=== PATIENT | female | born 1935 | race Two or more races ===

== ENCOUNTER 2017-11-23 08:30 | Inpatient (IN) | payer OTHER ==
[~2017-11-23 08:30] MED LIST: BONIVA150 MG PO; CRESTOR10 MG; HYDRALAZINE HCL25 MG PO; LIPITOR20 MG PO; PLAVIX75 MG PO; PREVACID30 MG PO; RECTICARE30 GM TP; TAMOXIFEN CITRA20 MG PO; TARKA 4/2401 BOTTLE PO; TOPROL XL50 M1 PO; ZESTRIL20 MG PO; ZYRTEC10 M3 PO
[2017-11-30] MEDS ORDERED: GABAPENTIN800 MG PO (09:06)
[2017-11-30] MEDS ORDERED: DOCUSATE SODIU100 MG PO (09:06)
[2017-11-30] MEDS ORDERED: CLONAZEPAM1 MG PO (09:07)
[2017-11-30] MEDS ORDERED: AMOX-CLAV 875-1 EACH PO ×2 (09:07→09:09)
[2017-11-30] MEDS ORDERED: PERCOCET 5-3251 EACH PO (09:07)
== END 2017-11-30 17:29 | disposition home or self-care (01) | DRG 460 ==
LOC: PED 11-29 05:12 → O/R 11-29 05:12 → SURH 11-29 08:30 → PED 11-29 19:17
PROVIDERS: Orthopaedic Surgery Orthopaedic Surgery of the Spine
PROC: 0SG10AJ Fusion of 2 or more Lumbar Vertebral Joints with Interbody Fusion Device, Posterior Approach, Anterior Column, Open Approach (ICD-10-PCS; 2017-11-29)
PROC: 0TS Urinary System, Reposition (ICD-10-PCS; 2017-11-29)
PROC: 07DS3ZZ Extraction of Vertebral Bone Marrow, Percutaneous Approach (ICD-10-PCS; 2017-11-29)
PROC: 0SG10A0 Fusion of 2 or more Lumbar Vertebral Joints with Interbody Fusion Device, Anterior Approach, Anterior Column, Open Approach (ICD-10-PCS; principal; 2017-11-29 10:00)
DX: M43.16 Spondylolisthesis, lumbar region (principal); M41.86 Other forms of scoliosis, lumbar region; M48.061 Spinal stenosis, lumbar region without neurogenic claudication; I10 Essential (primary) hypertension; B34.9 Viral infection, unspecified; K52.89 Other specified noninfective gastroenteritis and colitis; E78.4 Other hyperlipidemia; Z85.3 Personal history of malignant neoplasm of breast; Z86.73 Personal history of transient ischemic attack (TIA), and cerebral infarction without residual deficits; K58.8 Other irritable bowel syndrome; K60.2 Anal fissure, unspecified; K62.4 Stenosis of anus and rectum; M47.896 Other spondylosis, lumbar region

== ENCOUNTER 2017-12-15 13:11 | Emergency (ER) | payer OTHER ==
[~2017-12-15] VITALS: Ht 162.6 cm; Wt 74.8 kg
[~2017-12-15 13:11] MED LIST changes: +AMOX-CLAV 875-1 EACH PO; +CLONAZEPAM1 MG PO; +DOCUSATE SODIU100 MG PO; +GABAPENTIN800 MG PO; +PERCOCET 5-3251 EACH PO
[2017-12-15] MEDS ORDERED: VERAPAMIL ER240 MG (13:43)
[2017-12-15] MEDS ORDERED: ULTRACET PO (21:47)
[2017-12-15] MEDS ORDERED: INTESTINEX680 M1 PO (21:47)
[2017-12-15] MEDS ORDERED: LEVAQUIN750 MG PO (21:47)
[2017-12-15] MEDS ORDERED: ZANTAC300 MG PO (21:47)
[2017-12-15] MEDS ORDERED: FLONASE ALLERG9.9 ML NASAL (21:47)
== END 2017-12-15 23:13 ==
LOC: ER 13:11
DX: J06.9 Acute upper respiratory infection, unspecified (principal); J32.8 Other chronic sinusitis; N39.0 Urinary tract infection, site not specified

== ENCOUNTER 2017-12-20 15:53 | Emergency (ER) | payer OTHER ==
[~2017-12-20] VITALS: Ht 162.6 cm; Wt 74.8 kg
[~2017-12-20 15:53] MED LIST changes: +FLONASE ALLERG9.9 ML NASAL; +INTESTINEX680 M1 PO; +LEVAQUIN750 MG PO; +ULTRACET PO; +VERAPAMIL ER240 MG; +ZANTAC300 MG PO
== END 2017-12-20 18:10 | disposition home or self-care (01) ==
LOC: ER 15:53
DX: J06.9 Acute upper respiratory infection, unspecified (principal)

== ENCOUNTER 2018-01-24 12:11 | Outpatient (CLI) | payer OTHER | END 2018-01-24 12:17 | disposition home or self-care (01) | LOC: RAD 12:11 | DX: M51.36 Other intervertebral disc degeneration, lumbar region (principal); Z98.1 Arthrodesis status ==

== ENCOUNTER 2018-05-16 10:31 | Outpatient (CLI) | payer OTHER | END 2018-05-16 10:36 | disposition home or self-care (01) | LOC: RAD 10:31 | DX: M43.10 Spondylolisthesis, site unspecified (principal); Z98.1 Arthrodesis status ==

== ENCOUNTER 2018-08-22 10:07 | Outpatient (CLI) | payer OTHER | END 2018-08-22 10:11 | disposition home or self-care (01) | LOC: MAMO-SONO 10:07 | DX: Z85.3 Personal history of malignant neoplasm of breast (principal) ==

== ENCOUNTER 2018-12-28 12:04 | Outpatient (CLI) | payer OTHER | END 2018-12-28 14:52 | disposition home or self-care (01) | LOC: RAD 12:04 | DX: M17.11 Unilateral primary osteoarthritis, right knee (principal); M17.12 Unilateral primary osteoarthritis, left knee ==

== ENCOUNTER 2019-01-09 10:11 | Outpatient (CLI) | payer OTHER | END 2019-01-09 10:12 | disposition home or self-care (01) | LOC: RAD 10:11 | DX: M41.50 Other secondary scoliosis, site unspecified (principal); Z98.1 Arthrodesis status ==

== ENCOUNTER 2019-08-27 09:46 | Outpatient (CLI) | payer OTHER | END 2019-08-27 09:50 | disposition home or self-care (01) | LOC: MAMO-SONO 09:46 | DX: Z85.3 Personal history of malignant neoplasm of breast (principal) ==

== ENCOUNTER 2020-10-08 10:07 | Outpatient (CLI) | payer OTHER | END 2020-10-08 10:14 | disposition home or self-care (01) | LOC: MAMO-SONO 10:07 | PROVIDERS: ATTEND Specialist | DX: M25.511 Pain in right shoulder (principal); N64.59 Other signs and symptoms in breast ==

== ENCOUNTER 2021-04-21 12:14 | Outpatient (CLI) | payer OTHER | END 2021-04-21 12:19 | disposition home or self-care (01) | LOC: RAD 12:14 | PROVIDERS: ATTEND Specialist | DX: M16.0 Bilateral primary osteoarthritis of hip (principal); M47.816 Spondylosis without myelopathy or radiculopathy, lumbar region; J45.998 Other asthma ==

== ENCOUNTER 2021-05-21 12:24 | Outpatient (CLI) | payer OTHER | END 2021-05-21 12:32 | disposition home or self-care (01) | LOC: SONOGRAMA 12:24 → MAMO-SONO 13:45 | PROVIDERS: ATTEND Specialist | DX: N64.89 Other specified disorders of breast (principal); Z85.3 Personal history of malignant neoplasm of breast; Z00.00 Encounter for general adult medical examination without abnormal findings ==

== ENCOUNTER 2021-06-22 12:11 | Outpatient (CLI) | payer OTHER | END 2021-06-22 12:29 | disposition home or self-care (01) | LOC: RAD 12:11 | PROVIDERS: ATTEND Physical Medicine & Rehabilitation | DX: M54.59 Other low back pain (principal); M25.111 Fistula, right shoulder ==

== ENCOUNTER 2021-07-29 12:04 | Outpatient (CLI) | payer OTHER | END 2021-07-29 12:15 | disposition home or self-care (01) | LOC: TOM 12:04 | PROVIDERS: ATTEND Otolaryngology Otology & Neurotology | DX: J32.8 Other chronic sinusitis (principal); J34.2 Deviated nasal septum ==

== ENCOUNTER → 2021-08-18 | Outpatient (CLI) | payer OTHER | END | disposition home or self-care (01) | LOC: PPH VACUNA 07:00 | PROVIDERS: ATTEND Emergency Medicine Pediatric Emergency Medicine | DX: Z23 Encounter for immunization (principal) ==

== ENCOUNTER 2021-09-03 15:12 | Emergency (ER) | payer OTHER ==
[~2021-09-03] VITALS: Ht 149.9 cm; Wt 59.0 kg
== END 2021-09-03 18:41 | disposition home or self-care (01) ==
LOC: ER 15:12
DX: R06.02 Shortness of breath (principal)

== ENCOUNTER 2021-10-12 11:53 | Outpatient (CLI) | payer OTHER | END 2021-10-12 12:01 | disposition home or self-care (01) | LOC: MAMO-SONO 11:53 | PROVIDERS: ATTEND Specialist | DX: R92.1 Mammographic calcification found on diagnostic imaging of breast (principal); Z85.3 Personal history of malignant neoplasm of breast ==

== ENCOUNTER 2021-11-11 14:05 | Emergency (ER) | payer OTHER ==
[~2021-11-11] VITALS: Ht 162.6 cm; Wt 79.4 kg
[2021-11-11] MEDS ORDERED: ATORVASTATIN CA10 MG PO (14:25)
[2021-11-11] MEDS ORDERED: LOSOL (14:25)
== END 2021-11-11 20:22 | disposition home or self-care (01) ==
LOC: ER 14:05
DX: S00.83XA Contusion of other part of head, initial encounter (principal); W18.31XA Fall on same level due to stepping on an object, initial encounter; Y93.9 Activity, unspecified; Y92.9 Unspecified place or not applicable; Y99.9 Unspecified external cause status; I10 Essential (primary) hypertension; Z91.013 Allergy to seafood; Z88.6 Allergy status to analgesic agent

== ENCOUNTER 2021-12-15 09:57 | Outpatient (CLI) | payer OTHER ==
[~2021-12-15 09:57] MED LIST changes: +ATORVASTATIN CA10 MG PO; +LOSOL
== END 2021-12-15 09:58 | disposition home or self-care (01) ==
LOC: NUCLEAR 09:57
PROVIDERS: ATTEND Internal Medicine Cardiovascular Disease
DX: I87.2 Venous insufficiency (chronic) (peripheral) (principal)

== ENCOUNTER 2022-05-12 10:20 | Outpatient (CLI) | payer OTHER | END 2022-05-12 10:21 | disposition home or self-care (01) | LOC: NUCLEAR 10:20 | PROVIDERS: ATTEND Physical Medicine & Rehabilitation | DX: M81.0 Age-related osteoporosis without current pathological fracture (principal) ==

== ENCOUNTER → 2022-06-15 | Outpatient (CLI) | payer OTHER | END | disposition home or self-care (01) | LOC: NUCLEAR 09:54 | PROVIDERS: ATTEND Internal Medicine | DX: I70.293 Other atherosclerosis of native arteries of extremities, bilateral legs (principal); Z88.6 Allergy status to analgesic agent; Z91.013 Allergy to seafood ==

== ENCOUNTER → 2022-10-14 | Outpatient (CLI) | payer OTHER | END | disposition home or self-care (01) | LOC: MAMO-SONO 09:32 | PROVIDERS: ATTEND Specialist | DX: Z90.12 Acquired absence of left breast and nipple (principal); Z85.3 Personal history of malignant neoplasm of breast ==